=== PATIENT | male | born 1965 | race Hispanic/Latino ===

== ENCOUNTER 2018-09-02 06:15 | Day surgery (SDC) | payer OTHER ==
[2018-09-02] MEDS ORDERED: NACL 0.9% 500 ML 500 ML IV SCH (07:00)
[2018-09-02 07:16] LABS: Basophils % (Auto) 0.3 % (0.0-1.8); Eosinophils # (Auto) 0.5 K/mm3 (0.0-0.4); Hematocrit 37.8 % (35.5-45.6); Hemoglobin 13.2 gm/dl (11.8-15.2); Lymphocytes # (Auto) 2.7 K/mm3 (1.2-5.4); Lymphocytes % (Auto) 21.2 % (13.4-35.0); Mean Corpuscular HGB Conc 35 % (32-34); Mean Corpuscular Volume 87 fl (84-94); Monocytes # (Auto) 1.1 K/mm3 (0.0-0.8); Monocytes % (Auto) 8.4 % (0.0-7.3); Platelet Count 272 K/mm3 (140-440); Red Blood Count 4.37 M/mm3 (3.65-5.03); Red Cell Distribution Width 12.7 % (13.2-15.2)
[2018-09-02 07:28] LABS: INR 0.97 (0.87-1.13)
[2018-09-02 07:29] LABS: Partial Thromboplastin Time 28.5 Sec. (24.2-36.6)
[2018-09-02 07:31] LABS: BUN/Creatinine Ratio 20; Blood Urea Nitrogen 18 mg/dL (9-20); Calcium 9.3 mg/dL (8.4-10.2); Hemolysis Index 47
[2018-09-02] MEDS ORDERED: XYLOCAINE 2% INFILTRATI ONE (09:01)
[2018-09-02] MEDS ORDERED: CALAN ONE (09:01)
[2018-09-02] MEDS ORDERED: HEPARIN/NS 5000 UNIT/500ML(CATH LAB) 1,000 ML IR ONE (09:01)
[2018-09-02] MEDS ORDERED: NITROGLYCERIN SYRINGE 3 ML ONE (09:02)
[2018-09-02] MEDS: SUBLIMAZE ONE ×2 (09:39→09:43)
[2018-09-02] MEDS: VERSED ONE ×2 (09:39→09:43)
[2018-09-02] MEDS: HEPARIN 10,000 UNITS/10 ML ONE ×2 (09:43→10:03)
--- NOTE | 2018-09-02 10:37 | Discharge Summary ---
Short Stay Discharge Plan Activity: advance as tolerated Weight Bearing Status: Full Weight Bearing Diet: low fat, low cholesterol, low salt, diabetic Wound: keep clean and dry Special Instructions: smoking cessation, no heavy lifting (3 days), hold Metformin (48hrs) Additional Instructions: TRANSFER TO TERTIARY CARE INDICATED. Transfer solway for CABG. Follow up with: CLARY JOAQUIN MD [Primary Care Provider] - 7 Days
[2018-09-02] MEDS ORDERED: NACL 0.9% 1000 ML 1,000 ML IV SCH (11:00)
--- NOTE | 2018-09-02 11:06 | Cardiac Catherization Report ---
CARDIAC CATHETERIZATION REPORT REASON FOR PROCEDURE: Chest pain and abnormal thallium stress test. PROCEDURE: 1. Left heart catheterization. 2. Selective left and right coronary angiography. 3. Left ventricle angiography. 4. Intravascular ultrasound interrogation of the left main artery. 5. Sedation time, start 09:39, end 10:10. The patient was prepped and draped in a sterile fashion after informed consent. The right radial cath site was prepped and draped after a negative Landon's test. The right radial artery was entered using Seldinger technique followed by placement of a 6-[place] hydrophilic sheath. Routine radial cocktail was administered via the sheath. Selective left and right coronary angiography was performed using a #3.5 left Pam, and a #4 right Pam. The pigtail catheter was used for left ventricle angiography. The angiograms were reviewed. CORONARY ANGIOGRAPHY: There was moderate calcification involving the left main and proximal left anterior descending artery. The left main coronary artery contained a 40% to 50% luminal stenosis of its mid segment. The left anterior descending artery contained mild luminal irregularities of its proximal and mid segments. The first obtuse marginal branch of the circumflex was a small caliber vessel that contained a 60% proximal stenosis. Immediately following this, there was a stump of another possible proximal obtuse marginal, which was chronically totally occluded and was not significantly collateralized on angiography. The AV groove circumflex artery then was notable for mild luminal irregularities, leading to a medium sized mid obtuse marginal, and the larger terminal obtuse marginal. There was a 40%-50% stenosis of the proximal segment of the mid obtuse marginal. The right coronary artery was dominant. This vessel contained a long, 80%-90% stenosis of its mid segment. Following that, there was another 60-70% stenosis of the distal AV groove segment, located between the posterior descending branch and the posterolateral branch. LEFT VENTRICLE: Left ventricular systolic function was at lower limits of normal with left ventricular ejection fraction of 45% to 50%. INTRAVASCULAR ULTRASOUND: After review of the angiograms, we recommended intravascular ultrasound of the left main disease. We selected a #3.5 left Pam guiding catheter and advanced to the left coronary ostium. A 0.014 inch [employer] 50 guidewire was introduced into the left main and down the LAD. After wire placement, the intravascular ultrasound probe was then used to interrogate the left main. FINDINGS: On intravascular ultrasound was severe concentric plaque involving the entire mid to distal left main. At the mid left main, the minimal lumen diameter was only 2.7 mm. There was 69% area stenosis of the mid left main. CONCLUSION: 1. Severe multivessel coronary artery disease, including severe left main disease. 2. Intravascular ultrasound interrogation of the left main demonstrates a minimal lumen diameter of 2.7 mm, on this 69% area of stenosis. 3. Left ventricular systolic function at the lower limits of normal, ejection fraction 45% to 50%. RECOMMENDATION: Referral for coronary artery bypass surgery. JOB# [id number] BRANDON/NTS
[2018-09-02 17:38] VITALS: BP 112/52
== END 2018-09-02 17:41 | disposition critical access hospital (66) ==
LOC: CATHLABREC 06:15
PROVIDERS: ATTEND Internal Medicine Cardiovascular Disease
DX: I25.10 Atherosclerotic heart disease of native coronary artery without angina pectoris (principal); E78.00 Pure hypercholesterolemia, unspecified; I10 Essential (primary) hypertension; K21.9 Gastro-esophageal reflux disease without esophagitis; M19.90 Unspecified osteoarthritis, unspecified site; Z83.3 Family history of diabetes mellitus; Z79.899 Other long term (current) drug therapy; Z79.82 Long term (current) use of aspirin; Z79.4 Long term (current) use of insulin; Z79.01 Long term (current) use of anticoagulants; Z87.891 Personal history of nicotine dependence; Z98.890 Other specified postprocedural states; Z82.49 Family history of ischemic heart disease and other diseases of the circulatory system
CPT/HCPCS: 36415; 80048; 82962; 85025; 85347; 85610; 85730; 92978; 93005; 93010; 93458; 99156; 99157; C1753; C1769; C1887; C1894; J1644; J2250; J3010; J7030; J7040; Q9967